=== PATIENT | female | born 2000 | race Hispanic/Latino ===

== ENCOUNTER → 2022-01-30 | Outpatient (CLI) | payer BC | LOC: US 07:39 | PROVIDERS: ATTEND Family Medicine | DX: R10.11 Right upper quadrant pain (principal); R59.0 Localized enlarged lymph nodes; N64.89 Other specified disorders of breast | CPT/HCPCS: 76700; 76856 ==

== ENCOUNTER 2022-08-16 10:33 | Emergency (ER) | payer BC ==
[~2022-08-16] VITALS: Ht 160 cm; Wt 79.4 kg
[2022-08-16 10:34] VITALS: O2SAT 100
== END 2022-08-16 11:23 | disposition home or self-care (01) ==
LOC: ER 10:37
DX: R07.89 Other chest pain (principal)
CPT/HCPCS: 93005; 99282